=== PATIENT | female | born 1985 | race Caucasian/White ===

== ENCOUNTER 2021-11-23 13:22 | Outpatient (CLI) | payer BC ==
[2021-11-24 00:25] LABS: SARS-CoV-2 PCR by NAA Not Detected (NotDetected)
== END 2021-11-23 13:23 | disposition home or self-care (01) ==
LOC: CSHLAB 13:22
PROVIDERS: ATTEND Advanced Practice Midwife
DX: Z20.822 Contact with and (suspected) exposure to COVID-19 (principal)
CPT/HCPCS: U0003; U0005

== ENCOUNTER 2021-11-26 17:04 | Inpatient (IN) | payer BC ==
[~2021-11-26 17:04] MED LIST: Bupivacaine/Epinephrine 0.25% 30 ML VIAL ONE
[2021-11-26] MEDS ORDERED: Diphenoxylate HCl/Atropine Tablet PO PRN (18:17)
[2021-11-26] MEDS ORDERED: Lidocaine 1% (PF) 30 ML VIAL SC PRN (18:17)
[2021-11-26] MEDS ORDERED: HYDROcodone/Acetaminophen 5/325 mg Tablet PO PRN ×2 (18:17)
[2021-11-26] MEDS ORDERED: Methylergonovine 0.2 MG/ML VIAL IM PRN (18:17)
[2021-11-26] MEDS ORDERED: Butorphanol Tartrate 1 MG/ML VIAL SLOW IVP PRN (18:17)
[2021-11-26] MEDS ORDERED: Carboprost 250 MCG/ML AMP IM PRN (18:17)
[2021-11-26] MEDS ORDERED: Ondansetron PF 4 MG/2 ML Vial IVP PRN (18:17)
[2021-11-26] MEDS ORDERED: Misoprostol 200 MCG TAB PR PRN (18:17)
[2021-11-26] MEDS ORDERED: Acetaminophen 500 MG TAB PO PRN (18:17)
[2021-11-26] MEDS ORDERED: hydrALAZINE 20 MG/ML VIAL SLOW IVP PRN (18:17)
[2021-11-26] MEDS ORDERED: Ibuprofen 800 MG TAB PO PRN (18:17)
[2021-11-26] MEDS ORDERED: Promethazine HCl 25 MG/ML VIAL IM PRN (18:17)
[2021-11-26] MEDS ORDERED: Penicillin G Potassium 5 MILL.UNITS in Sodium Chloride 0.9% 100 ML IVPB SCH (18:30)
[2021-11-26] MEDS ORDERED: NS w/ Oxytocin 30 units 500 ML IV SCH ×2 (18:30)
[2021-11-26 19:03] VITALS: BMI 34.5
[2021-11-26 19:29] LABS: Hemoglobin 10.5 g/dL (12.0-15.5); Mean Corpuscular HGB CONC 32.9 g/dL (32.0-36.0); Mean Corpuscular Hemoglobin 24.9 pg (27.0-33.0); Mean Corpuscular Volume 75.6 fl (81.6-98.3); Mean Platelet Volume 10.8 fl (7.4-10.4); Platelet Count 376 10x3/uL (150-450); RBC Distribution Width 15.8 % (11.5-14.5); Red Blood Cell (RBC) Count 4.22 10x6/uL (3.90-5.03); White Blood Cell (WBC) Count 7.1 10x3/uL (3.5-10.5)
[2021-11-26] MEDS: Misoprostol 100 MCG TAB VAG SCH (19:41)
[2021-11-26 19:56] LABS: Hep B Surf Ag Non-Reactive S/CO (NonReactive)
[2021-11-26 19:57] LABS: HBSAg Index 0.16 S/CO (0-0.99); Syphilis Antibody Nonreactive (Nonreactive); Syphilis Antibody Index 0.03 S/CO (<1.00 Non-Reactive)
[2021-11-26] MEDS: Penicillin G 2.5 MILL.units 2.5 MILL.UNITS in Premix Bag 1 BAG IVPB SCH (23:33)
[2021-11-27] MEDS ORDERED: Fentanyl 2 mcg/Bup 0.1% Cadd 100 ML ONE (01:39)
[2021-11-27] MEDS: Lactated Ringer's 1,000 ML IV SCH ×3 (01:53→12:39)
[2021-11-27] MEDS ORDERED: diphenhydrAMINE 50 MG/ML VIAL IVP PRN (02:22)
[2021-11-27] MEDS ORDERED: Acetaminophen 325 MG TAB PO PRN (02:22)
[2021-11-27] MEDS ORDERED: ePHEDrine Sulfate 50 MG/10 ML VIAL SLOW IVP PRN (02:22)
[2021-11-27] MEDS ORDERED: Ondansetron PF 4 MG/2 ML Vial IVP PRN ×2 (02:22→11:20)
[2021-11-27] MEDS ORDERED: Promethazine HCl 25 MG/ML VIAL IM PRN (02:22)
[2021-11-27] MEDS ORDERED: Naloxone HCl 0.4 mg/ml Vial IVP PRN ×2 (02:22)
[2021-11-27] MEDS ORDERED: Hydrocerin (Eucerin) Cream 120 gm Jar TOP PRN (02:22)
[2021-11-27] MEDS ORDERED: Fentanyl 2 mcg/Bupivacaine 0.1% Cassette 100 ML EPIDURAL SCH (02:30)
[2021-11-27] MEDS ORDERED: Communication Order-Pharmacy FS SCH (02:30)
[2021-11-27] MEDS ORDERED: Lactated Ringer's 500 ML IV PRN (02:53)
[2021-11-27] MEDS: Penicillin G 2.5 MILL.units 2.5 MILL.UNITS in Premix Bag 1 BAG IVPB SCH ×3 (03:24→12:39)
[2021-11-27] MEDS ORDERED: Misoprostol 200 MCG TAB VAG PRN (11:20)
[2021-11-27] MEDS ORDERED: Benzocaine-Menthol 82.5 ML CAN TOP PRN (11:20)
[2021-11-27] MEDS ORDERED: NS w/ Oxytocin 30 units 500 ML IV SCH (11:20)
[2021-11-27] MEDS ORDERED: Milk Of Magnesia 30 ML UDCUP PO PRN (11:20)
[2021-11-27] MEDS ORDERED: Lanolin Ointment 7 GM TUBE TOP PRN (11:20)
[2021-11-27] MEDS ORDERED: Methylergonovine 0.2 MG/ML VIAL IM PRN (11:20)
[2021-11-27] MEDS ORDERED: hydrALAZINE 20 MG/ML VIAL SLOW IVP PRN (11:20)
[2021-11-27] MEDS ORDERED: HYDROcodone/Acetaminophen 5/325 mg Tablet PO PRN ×2 (11:20)
[2021-11-27] MEDS ORDERED: Bisacodyl 10 MG SUPP PR PRN (11:20)
[2021-11-27] MEDS: Misoprostol 100 MCG TAB VAG SCH ×2 (12:38→12:39)
[2021-11-27] MEDS: Ibuprofen 800 MG TAB PO SCH ×2 (15:15→21:13)
[2021-11-27] MEDS: Ferrous Sulfate 325 MG TAB PO SCH (16:53)
[2021-11-27] MEDS: Docusate 100 MG CAP PO SCH (21:13)
[2021-11-27 23:58] VITALS: TEMP 97.8
[2021-11-28] MEDS: Ibuprofen 800 MG TAB PO SCH ×2 (05:03→14:10)
[2021-11-28] MEDS: Ferrous Sulfate 325 MG TAB PO SCH (08:31)
[2021-11-28] MEDS: Docusate 100 MG CAP PO SCH (08:32)
[2021-11-28 08:52] VITALS: BP 115/68
[2021-11-28] MEDS ORDERED: Prenatal Vitamin 1 TAB PO SCH (09:00)
== END 2021-11-28 15:35 | disposition home or self-care (01) | DRG 807 ==
LOC: CSHLD 17:04 → CSHPP 11-27 11:40
PROVIDERS: ADMIT Obstetrics & Gynecology; ATTEND Obstetrics & Gynecology
PROC: 10E0XZZ Delivery of Products of Conception, External Approach (ICD-10-PCS; principal; 2021-11-27)
PROC: 0KQM0ZZ Repair Perineum Muscle, Open Approach (ICD-10-PCS; 2021-11-27)
DX: O99.824 Streptococcus B carrier state complicating childbirth (principal); Z37.0 Single live birth; O70.1 Second degree perineal laceration during delivery; Z3A.39 39 weeks gestation of pregnancy; D64.9 Anemia, unspecified; O99.02 Anemia complicating childbirth; Z79.82 Long term (current) use of aspirin; Z91.014 Allergy to mammalian meats; O76 Abnormality in fetal heart rate and rhythm complicating labor and delivery; O77.0 Labor and delivery complicated by meconium in amniotic fluid
CPT/HCPCS: 36415; 85027; 86780; 86850; 86900; 86901; 87340; J2540; J2590; J3490; J7120